=== PATIENT | female | born 1940 | race Caucasian/White ===

== ENCOUNTER 2020-05-29 14:14 | Emergency (ER) | payer OTHER ==
[~2020-05-29] VITALS: Ht 152.4 cm; Wt 86.2 kg
[~2020-05-29 14:14] MED LIST: COUMADIN10 MG PO; COZAAR50 MG PO; FOSAMAX35 MG PO; LIPITOR40 MG PO; METFORMIN HCL500 MG PO; NOVOLIN 70/30 110 ML SUBCUTANEO; NOVOLOG MI100 UNIT/1 SC; SYNTHROID75 MCG PO; SYNTHROID88 MCG PO
== END 2020-05-29 21:33 | disposition home or self-care (01) ==
LOC: ER 14:14
DX: L03.116 Cellulitis of left lower limb (principal); L03.115 Cellulitis of right lower limb

== ENCOUNTER 2020-06-06 16:13 | Inpatient (IN) | payer OTHER ==
[~2020-06-06] VITALS: Wt 5.0 kg
--- NOTE | 2020-06-06 16:21 | NUR ---
PTE REFERIDO POR KINGS CHELSIE [place] POR CELULITIS EN AMBAS PIERNAS SE GLADYS S/V YSE UBIAC EN AREA DE OBSERVACION
[2020-06-07] MEDS ORDERED: COZAAR100 MG (08:13)
[2020-06-07] MEDS ORDERED: HUMULIN 70100 UNIT/2 SUBCUTANEO (08:15)
[2020-06-07] MEDS ORDERED: HUMULIN 70100 UNIT/1 SUBCUTANEO ×2 (08:15→08:18)
[2020-06-07] MEDS ORDERED: WARFARIN SODIU2.5 MG PO (08:16)
[2020-06-28] MEDS ORDERED: CHOLESTYRAMINE L4 GM PO (16:25)
[2020-06-28] MEDS ORDERED: INTESTINEX680 M1 PO (16:25)
[2020-06-28] MEDS ORDERED: XARELTO10 MG PO (16:25)
== END 2020-06-28 18:18 | disposition home or self-care (01) | DRG 603 ==
LOC: ER 16:13 → SURH 18:24 → SEC-K 18:24 → SURH 20:38 → MEDI 06-11 17:17
PROVIDERS: ADMIT Internal Medicine; ATTEND Internal Medicine
PROC: B54DZZZ Ultrasonography of Bilateral Lower Extremity Veins (ICD-10-PCS; 2020-06-07)
PROC: 02HV33Z Insertion of Infusion Device into Superior Vena Cava, Percutaneous Approach (ICD-10-PCS; 2020-06-13)
PROC: 4A033R1 Measurement of Arterial Saturation, Peripheral, Percutaneous Approach (ICD-10-PCS; principal; 2020-06-18)
PROC: B54DZZZ Ultrasonography of Bilateral Lower Extremity Veins (ICD-10-PCS; 2020-06-19)
PROC: B24BZZZ Ultrasonography of Heart with Aorta (ICD-10-PCS; 2020-06-19)
PROC: 3E0F7GC Introduction of Other Therapeutic Substance into Respiratory Tract, Via Natural or Artificial Opening (ICD-10-PCS; 2020-06-21)
PROC: BW21ZZZ Computerized Tomography (CT Scan) of Abdomen and Pelvis (ICD-10-PCS; 2020-06-26)
DX: L03.116 Cellulitis of left lower limb (principal); K52.1 Toxic gastroenteritis and colitis; T36.8X5A Adverse effect of other systemic antibiotics, initial encounter; L03.115 Cellulitis of right lower limb; I10 Essential (primary) hypertension; E03.9 Hypothyroidism, unspecified; Z79.4 Long term (current) use of insulin; E11.42 Type 2 diabetes mellitus with diabetic polyneuropathy; Z20.822 Contact with and (suspected) exposure to COVID-19; Z79.01 Long term (current) use of anticoagulants